=== PATIENT | male | born 1955 ===

== ENCOUNTER 2023-08-06 11:26 | Emergency (ER) | payer SELFPAY ==
[~2023-08-06] VITALS: Ht 177.8 cm; Wt 102.5 kg
[2023-08-06 11:34] VITALS: TEMP 97.8; O2SAT 95
[2023-08-06] MEDS: SODIUM CHLORIDE 0.9% 1,000 ML IV ONE (12:36)
[2023-08-06 12:40] LABS: HEMATOCRIT. 34.7 % (42.0-52.0); HEMOGLOBIN. 11.5 g/dL (14.0-18.0); LYMPHOCYTES % 9.1 % (20.0-50.0); MEAN CORPUSCULAR HEMOGLOBIN 30.6 pg (28.0-32.0); MEAN CORPUSCULAR HGB CONC 33.2 g/dL (31.0-37.0); MEAN CORPUSCULAR VOLUME 92.2 fL (80.0-94.0); MEAN PLATELET VOLUME 8.1 fl (7.4-10.4); MONOCYTES % 7.2 % (2.0-8.0); NEUTROPHILS % 83.7 % (40.0-76.0); PLATELET 206 x1000/uL (130-400); RED BLOOD CELL COUNT 3.77 mill/uL (4.7-6.1); RED CELL DISTRIBUTION WIDTH 13.8 % (11.6-14.6); WHITE BLOOD COUNT 15.5 x1000/uL (4.5-11.0)
[2023-08-06 12:49] LABS: CARBON DIOXIDE 27 mEq/L (21-32); CHLORIDE 104 mEq/L (98-107); POTASSIUM 3.7 mEq/L (3.5-5.1); SODIUM 136 mEq/L (136-145)
[2023-08-06 12:50] LABS: CALCIUM 9.3 mg/dL (8.7-10.4)
[2023-08-06 12:55] LABS: CREATININE 0.9 mg/dL (0.6-1.3); ETHANOL BLOOD < 10 mg/dL (<10); GLUCOSE 141 mg/dL (70-105); INR 1.2; PROTHROMBIN TIME 13.7 sec (9.6-11.0); UREA NITROGEN BLOOD 14 mg/dL (9-23)
[2023-08-06 12:56] LABS: LACTIC ACID 2.3 mmol/L (0.4-2.0); TROPONIN I HIGH SENSITIVITY 33 ng/L (3.0-53)
[2023-08-06 12:57] LABS: CREATINE KINASE 26 IU/L (46-171)
[2023-08-06 12:59] LABS: THYROID STIMULATING HORMONE < 0.10 uIU/mL (0.55-4.78)
[2023-08-06 13:09] LABS: *AMPHETAMINES SCREEN URINE NEGATIVE (NEGATIVE); *BARBITURATES SCREEN URINE NEGATIVE (NEGATIVE); *BENZODIAZEPINES SCREEN URINE NEGATIVE (NEGATIVE); *COCAINE SCREEN URINE NEGATIVE (NEGATIVE)
[2023-08-06 13:10] LABS: CANNABINOID URINE SCREEN PRESUMPTIVE POSITIVE (NEGATIVE); ECSTASY MDMA SCREEN URINE NEGATIVE (NEGATIVE); METHADONE URINE SCREEN NEGATIVE (NEGATIVE); OPIATES URINE SCREEN NEGATIVE (NEGATIVE); PHENCYCLIDINE URINE SCREEN NEGATIVE (NEGATIVE)
[2023-08-06 15:09] LABS: TROPONIN I HIGH SENSITIVITY 41 ng/L (3.0-53)
[2023-08-06 17:07] VITALS: BP 113/63; PULSE 81; RESP 16
== END 2023-08-06 17:11 | disposition home or self-care (01) ==
LOC: ER 11:26
DX: R55 Syncope and collapse (principal); E11.9 Type 2 diabetes mellitus without complications; I48.91 Unspecified atrial fibrillation; Z86.39 Personal history of other endocrine, nutritional and metabolic disease
CPT/HCPCS: 80305; 80048; 80320; 82550; 83880; 83605; 84443; 85025; 85610; 84484; 36415; 71045; 70450; 93005; 96360; 96361; 99285; J7030; Z7610; G0480